=== PATIENT | female | born 1945 | race Hispanic/Latino ===

== ENCOUNTER 2017-02-22 12:13 | Emergency (ER) | payer MEDICARE ==
[2017-02-22 12:13] VITALS: BMI 27.4
[2017-02-22 12:23] VITALS: RESP 16; TEMP 98.6
--- NOTE | 2017-02-22 12:36 | ED PDOC ---
Arrival/HPI - General Chief Complaint: Lower Extremity Problem/Injury Time Seen by Provider: 02/22/17 12:32 Historian: Patient - History of Present Illness Narrative History of Present Illness (Text): 02/22/17 12:33 This 71 yo female presents to this ED c/o right foot/toes injury x 3 days. Patient stated a book case fell on her right foot. Denies other complains. Time/Duration: Other (3 days) Symptom Onset: Sudden Quality: Aching Context: Home Past Medical History - Provider Review Nursing Documentation Reviewed: Yes - Infectious Disease Hx of Infectious Diseases: None - Reproductive Menopause: Yes - Cardiac Hx Hypertension: Yes Hx Pacemaker: No - Neurological Hx Paralysis: No - Hematological/Oncological Hx Blood Transfusions: No Hx Blood Transfusion Reaction: No - Musculoskeletal/Rheumatological Hx Musculoskeletal Disorders: Yes (RLS;) - Psychiatric Hx Emotional Abuse: No Hx Physical Abuse: No Hx Substance Use: No - Anesthesia Hx Anesthesia Reactions: No Hx Malignant Hyperthermia: No - Suicidal Assessment Feels Threatened In Home Enviroment: No Family/Social History - Physician Review Nursing Documentation Reviewed: Yes Family/Social History: No Known Family HX Smoking Status: Unknown If Ever Smoked Hx Alcohol Use: Yes (OCCASIONALLY) Hx Substance Use: No Allergies/Home Meds Allergies/Adverse Reactions: Allergies atorvastatin calcium [From Lipitor] Adverse Reaction (Severe, Verified 02/22/17 12:23) SEVERE LEG CRAMPS Home Medications: Home Meds Medication Instructions Recorded Confirmed Esomeprazole Magnesium [Nexium] 40 mg PO QAM 03/08/12 02/22/17 Metformin HCl [Metformin] 1,000 mg PO BID 06/29/15 02/22/17 Aspirin [Ecotrin] 81 mg PO QAM 01/13/16 02/22/17 Fluorometholone 1 drop EACHEYE QAM 01/13/16 02/22/17 Lisinopril/Hydrochlorothiazide 1 tab PO QAM 01/13/16 02/22/17 [Lisinopril-Hydrochlorothiazide 25 mg-20 mg] Oxycodone HCl/Acetaminophen 1 tab PO TID PRN 01/13/16 02/22/17 [Acetaminophen-Oxycodone 325 mg-5 mg] Alprazolam [Xanax] 0.5 mg PO HS PRN 06/17/16 02/22/17 Tiotropium [Spiriva] 1 inh INH DAILY PRN 06/17/16 02/22/17 rOPINIRole [Requip] 2 mg PO TID 06/17/16 02/22/17 Review of Systems - Review of Systems Constitutional: Normal. absent: Fatigue, Weight Change, Fevers Eyes: Normal ENT: Normal Respiratory: Normal. absent: SOB, Cough Cardiovascular: Normal. absent: Chest Pain, Palpitations Gastrointestinal: Normal. absent: Abdominal Pain, Nausea, Vomiting Genitourinary Female: Normal. absent: Dysuria, Frequency, Hematuria Musculoskeletal: Other (right dorsal foot pain) Skin: Normal Neurological: Normal Endocrine: Normal Hemo/Lymphatic: Normal Psychiatric: Normal Physical Exam Vital Signs Temp Pulse Resp BP Pulse Ox 02/22/17 12:19 98.6 F 94 H 16 136/74 98 Temperature: Afebrile Blood Pressure: Normal Pulse: Regular Respiratory Rate: Normal Appearance: Positive for: Well-Appearing, Non-Toxic, Comfortable Pain Distress: None Mental Status: Positive for: Alert and Oriented X 3 - Systems Exam Head: Present: Atraumatic, Normocephalic Pupils: Present: PERRL Extroacular Muscles: Present: EOMI Conjunctiva: Present: Normal Mouth: Present: Moist Mucous Membranes Neck: Present: Normal Range of Motion Upper Extremity: Present: Normal Inspection, Normal ROM Lower Extremity: Present: NORMAL PULSES, Normal ROM, Neurovascularly Intact, Capillary Refill < 2 s, Other ((+) mild ecchymotic changes near 2nd, and 3rd MPJ area of dorsal aspect of right foot). No: Edema, CALF TENDERNESS, Cyanosis , Joni's Sign, Tenderness, Swelling, Erythema, Deformity, Temperature Abnormalties Neurological: Present: GCS=15, CN II-XII Intact, Speech Normal, Motor Func Grossly Intact, Normal Sensory Function, Normal Cerebellar Funct, Gait Normal, Memory Normal Skin: Present: Warm, Dry, Normal Color. No: Rashes Psychiatric: Present: Alert, Oriented x 3 Medical Decision Making ED Course and Treatment: 02/22/17 13:30 Th Re-evaluation Time: 13:30 Reassessment Condition: Re-examined, Improved - RAD Interpretation Narrative RAD Interpretations (Text): 02/22/17 13:30 Accession No. : [id number] Patient Name / ID : CAMMY ELLINGTON / [id number] Exam Date : 02/22/2017 12:50:33 ( Approved ) Study Comment : Sex / Age : F / [id number] Creator : Kiana Ruiz V. Dictator : Kiana Ruiz V. Jigger Artisan : Boat Rental Clerk : Kiana Ruiz V. Approver2 : Report Date : 02/22/2017 13:16:13 My Comment : PROCEDURE: Right Foot Radiographs. HISTORY: pain s/p trauma COMPARISON: None. FINDINGS: BONES: Os peroneum. Inferior calcaneal spurring. No fracture. JOINTS: Normal. SOFT TISSUES: Normal. OTHER FINDINGS: None. IMPRESSION: No fracture. Radiology Orders: 02/22/17 12:32 FOOT RIGHT 3 VIEWS ROUTINE [RAD] Stat Disposition/Present on Arrival - Present on Arrival Any Indicators Present on Arrival: No History of DVT/PE: No History of Uncontrolled Diabetes: No Urinary Catheter: No History of Decub. Ulcer: No History Surgical Site Infection Following: None - Disposition Have Diagnosis and Disposition been Completed?: Yes Diagnosis: Foot contusion Disposition: HOME/ ROUTINE Disposition Time: 13:31 Patient Plan: Discharge Condition: GOOD Discharge Instructions (ExitCare): Contusion in Adults (ED) Additional Instructions: Call Dr. Gama foot doctor for follow up visit on Monday as scheduled by you. Keep foot elevated, ice, eliel bandage, rest, cane. Use home cane. Remove eliel bandage at bedtime. Return to emergency if symptoms worsen Referrals: Ambrose Nayak MD [Primary Care Provider] - Follow up with primary Patricia Cardoso DPM [Staff Provider] - Follow up with primary Forms: [employer] (Sinhala)
--- NOTE | 2017-02-22 13:17 | RAD ---
PROCEDURE: Right Foot Radiographs. HISTORY: pain s/p trauma COMPARISON: None. FINDINGS: BONES: Os peroneum. Inferior calcaneal spurring. No fracture. JOINTS: Normal. SOFT TISSUES: Normal. OTHER FINDINGS: None. IMPRESSION: No fracture.
[2017-02-22 14:25] VITALS: BP 131/77; PULSE 78; O2SAT 99
== END 2017-02-22 14:27 | disposition home or self-care (01) ==
LOC: ED 12:13
DX: S90.31XA Contusion of right foot, initial encounter (principal); W22.8XXA Striking against or struck by other objects, initial encounter; Y93.9 Activity, unspecified; Y92.9 Unspecified place or not applicable